=== PATIENT | male | born 1995 | race Two or more races ===

== ENCOUNTER 2019-10-22 23:24 | Emergency (ER) | payer BC ==
[~2019-10-22] VITALS: Ht 172.7 cm; Wt 64.4 kg
--- NOTE | 2019-10-22 23:42 | NUR ---
PT AAOX4. AMBULATORY WITH STEADY GAIT. BIBSELF C/O TESTICULAR PAIN X1 DAY. PT STATED "MY LEFT ONE HURTS MORE SOMETIMES." PT PALCED ON MONITOR AND PULSE OX. VSS. AWAITING MD FOR EVAL. URINE COLLECTED AND SENT TO LAB.
--- NOTE | 2019-10-22 23:43 | NUR ---
O LAB.URINE SAMPLE COLLECTED AND SENT
--- NOTE | 2019-10-22 23:57 | NUR ---
BUTTON ATTACHING MACHINE OPERATOR AT BEDSIDE FOR BLOOD DRAW
[2019-10-23 00:02] LABS: BASOPHILS % (AUTO) 0.7 % (0.0-2.0); EOSINOPHILS % (AUTO) 3.2 % (0.0-6.0); HEMATOCRIT 47 % (39-51); HEMOGLOBIN 15.6 g/dL (13.5-17.5); LYMPHOCYTES # (AUTO) 2.7 /CMM (0.8-4.8); LYMPHOCYTES % (AUTO) 38.7 % (20.0-44.0); MEAN CORPUSCULAR HGB CONC 33 g/dl (31.0-36.0); MEAN CORPUSCULAR VOLUME 84 fL (80-96); MONOCYTES # (AUTO) 0.6 /CMM (0.1-1.30); MONOCYTES % (AUTO) 8.3 % (2.0-12.0); NEUTROPHILS # (AUTO) 3.4 /CMM (1.8-8.9); NEUTROPHILS % (AUTO) 49.1 % (43.0-81.0); PLATELET COUNT (AUTO) 261 /CMM (150-450); RED BLOOD CELL COUNT(AUTO) 5.67 MIL/uL (4.5-6.0); WHITE BLOOD COUNT (AUTO) 6.9 K/uL (4.3-11.0)
[2019-10-23 00:02] LABS: APPEARANCE,URINE Clear (CLEAR); BILIRUBIN,URINE Negative (NEGATIVE); BLOOD, URINE Trace-intact Ery/uL (NEGATIVE); COLOR,URINE Yellow (YELLOW); KETONES,URINE Negative (NEGATIVE); LEUKOCYTE ESTERASE ,URINE Negative (NEGATIVE); NITRITE, URINE Negative (NEGATIVE); PROTEIN,URINE Negative (NEGATIVE); UGLUCOSE Negative (NEGATIVE); UROBILINOGEN,URINE 0.2 EU/dL (0.2)
--- NOTE | 2019-10-23 00:11 | NUR ---
Jane erwin in [facility] - 10/23/19 at 0012 by NOÉ PER MD MALIK, HELD THE SCROTUM FOR 15 MINS.
[2019-10-23 00:18] LABS: CALCIUM, SERUM 9.2 mg/dL (8.5-10.1); CREATININE 0.9 mg/dL (0.6-1.3); POTASSIUM 3.8 mmol/L (3.5-5.1)
[2019-10-23 00:40] LABS: BACTERIA,URINE Rare /HPF (None Seen); RBC,URINE 0-2 /HPF (0-2); SQUAMOUS EPITHELIAL CELL,UR Rare /HPF (None Seen); WBC,URINE 0-2 /HPF (0-3)
[2019-10-23 01:10] VITALS: BP 125/81
--- NOTE | 2019-10-23 01:24 | NUR ---
Patient discharged to home in stable condition. Written and verbal after care instructions given. Patient verbalizes understanding of instruction. ambulatory with a steady gait
== END 2019-10-23 01:24 | disposition home or self-care (01) ==
LOC: ER 23:32
DX: N43.2 Other hydrocele (principal); N50.3 Cyst of epididymis
CPT/HCPCS: 36415; 76870-TC; 80048-TC; 81000-TC; 85025-TC

== ENCOUNTER 2019-11-06 | Emergency (ER) | payer BC ==
[~2019-11-06] VITALS: Ht 170.2 cm; Wt 63.5 kg
[2019-11-06 00:05] VITALS: BP 133/77
[2019-11-06] MEDS ORDERED: DEXAMETHASONE SOD PHOSPHATE 10 MG/ML VIAL ONE (00:53)
[2019-11-06] MEDS ORDERED: DEXAMETHASONE SOD PHOSPHATE 10 MG in IV D5W 50 ML IV ONE (01:00)
== END 2019-11-06 01:59 | disposition home or self-care (01) ==
LOC: ER 00:03
DX: J02.8 Acute pharyngitis due to other specified organisms (principal)
CPT/HCPCS: 87070; 87880; 96365; 99284; J1100 ×2; J7060 ×2; 86403-TC